=== PATIENT | female | born 1940 | race Caucasian/White ===

== ENCOUNTER 2024-07-24 15:04 | Emergency (ER) | payer MEDICARE, OTHER ==
[2024-07-24 15:36] LABS: APPEARANCE,URINE CLEAR (CLEAR); COLOR,URINE YELLOW; PH,URINE 5.5 (5.0-8.0)
[2024-07-24 15:37] LABS: BILIRUBIN,URINE NEGATIVE (NEGATIVE); GLUCOSE,URINE NEGATIVE (NEGATIVE); KETONES,URINE NEGATIVE (NEGATIVE); LEUKOCYTE ESTERASE,URINE NEGATIVE (NEGATIVE); NITRITE,URINE NEGATIVE (NEGATIVE); OCCULT BLOOD,URINE LARGE (NEGATIVE); PROTEIN,URINE NEGATIVE (NEGATIVE); UROBILINOGEN,URINE 0.2 E.U./dL (0.2-1.0)
[2024-07-24] MEDS: Benazepril 10 MG Tab PO ONE ×2 (15:59→18:18)
[2024-07-24] MEDS ORDERED: Sulfamethoxazole/Trimethoprim 800-160 MG Tab ONE (16:00)
[2024-07-24] MEDS ORDERED: Benazepril 10 MG Tab ONE (16:00)
== END 2024-07-24 16:15 | disposition home or self-care (01) ==
LOC: LB.ED 15:04
DX: N39.0 Urinary tract infection, site not specified (principal); E03.9 Hypothyroidism, unspecified; Z79.899 Other long term (current) drug therapy
CPT/HCPCS: 81003; 99283; A9270-GY